=== PATIENT | female | born 1995 | race Caucasian/White ===

== ENCOUNTER 2019-04-06 04:18 | Inpatient (IN) ==
[2019-04-06] MEDS ORDERED: STADOL IV PRN (04:22)
[2019-04-06] MEDS ORDERED: PEPCID PO PRN (04:22)
[2019-04-06] MEDS ORDERED: PEPCID IV PRN (04:22)
[2019-04-06] MEDS ORDERED: TYLENOL PO PRN (04:22)
[2019-04-06] MEDS ORDERED: PEPCID PO ONE ×2 (04:22→20:17)
[2019-04-06] MEDS ORDERED: REGLAN PO ONE (04:22)
[2019-04-06] MEDS ORDERED: KEFZOL 1 GM/D5W 1 GM/50 ML IVPB IV PRN (04:22)
[2019-04-06] MEDS ORDERED: SODIUM CHLORIDE 0.9% INJ SCH (04:30)
[2019-04-06] MEDS ORDERED: PITOCIN 30 UNITS/NS 30 UNIT/500 ML IV.SOLN IV SCH ×2 (04:30→12:00)
[2019-04-06] MEDS ORDERED: AMPICILLIN 2 GM/NS 2 GM/100 ML IVPB IV ONE (04:31)
[2019-04-06] MEDS: LR 1,000 ML IV SCH ×2 (04:40→08:47)
[2019-04-06 05:04] LABS: BASO# 0.02 X1000 (0.0-0.2); BASO% 0.2 % (0.0-0.8); EOS# 0.18 X1000 (0.0-0.7); EOS% 1.5 % (0.0-10.0); HEMATOCRIT 32.3 % (37.0-47.0); HEMOGLOBIN 10.9 g/dL (12.0-16.0); IMM GRAN# 0.11 X1000 (0.0-0.04); IMM GRAN% 0.9 % (0.0-0.5); LYMPH# 2.45 X1000 (1.2-3.4); LYMPH% 19.8 % (20.5-51.1); MCH 28.5 PG (27-31); MCHC 33.7 g/dL (33-37); MCV 84.6 FL (81-99); MONO# 1.13 X1000 (0.11-0.59); MONO% 9.1 % (1.7-9.3); MPV 11.8 FL (7.4-10.4); NEUT# 8.47 X1000 (1.4-6.5); NEUT% 68.5 % (42.2-75.2); PLT 195 X1000 (130-400); RBC 3.82 XMIL (4.2-5.4); RDW 12.5 % (11.5-14.5); WBC 12.36 X1000 (4.8-10.8)
[2019-04-06] MEDS: ZOFRAN IV PRN ×2 (05:23→08:31)
[2019-04-06] MEDS ORDERED: NAROPIN 0.2% INJ ONE (05:34)
[2019-04-06] MEDS ORDERED: MINERAL OIL MISC ONE (05:35)
[2019-04-06] MEDS ORDERED: XYLOCAINE-MPF 1% INJ ONE (05:35)
[2019-04-06] MEDS ORDERED: FENTANYL-BUPIV-NS 2 MCG-0.1% 200 ML EPIDURAL SCH (05:45)
[2019-04-06 06:10] LABS: URINE SOURCE VOIDED
[2019-04-06 06:30] LABS: BILIRUBIN URINE NEGATIVE (NEGATIVE); BLOOD URINE 4+ (NEGATIVE); CLARITY SL. CLOUDY (CLEAR); GLUCOSE URINE NEGATIVE (NEGATIVE); KETONE URINE TRACE mg/dL (NEGATIVE); LEUKOCYTES URINE 1+ (NEGATIVE); NITRITE URINE NEGATIVE (NEGATIVE); PROTEIN URINE 1+(30 mg/dL) mg/dL (NEGATIVE); SP GRAVITY URINE 1.015; UROBILINOGEN URINE NORMAL
[2019-04-06 06:31] LABS: UR AMPHETAMINES QUAL NONE DETECTED (NONE DETECT); UR BARBITUATES QUAL NONE DETECTED (NONE DETECT); UR BENZODIAZEPIN QUAL NONE DETECTED (NONE DETECT); UR CANNABINOIDS QUAL NONE DETECTED (NONE DETECT); UR COCAINE QUAL NONE DETECTED (NONE DETECT); UR METHADONE QUAL NONE DETECTED (NONE DETECT); UR METHAMPHETAMINE QUAL NONE DETECTED (NONE DETECT); UR OPIATES QUAL NONE DETECTED (NONE DETECT); UR OXYCODONE QUAL NONE DETECTED (NONE DETECT); UR PCP QUAL NONE DETECTED (NONE DETECT); UR PROPOXYPHENE QUAL NONE DETECTED (NONE DETECT); UR TCA QUAL NONE DETECTED (NONE DETECT)
[2019-04-06 06:34] LABS: COLOR PINK
--- NOTE | 2019-04-06 07:46 | HISTORY AND PHYSICAL ---
HISTORY OF PRESENT ILLNESS: Patient is a 23-year-old, white female, G 3, P 1, A 1 at 38 weeks gestation, who presented at 4 a.m. with spontaneous rupture of membranes, having some contractions. The patient was noted to be 4 cm dilated upon presentation. care significant for rubella nonimmune, also epilepsy, and was diagnosed as a fragile X carrier. Group B strep culture was negative. PAST MEDICAL HISTORY: Significant for epilepsy. She is on medication. She also has migraines on occasion and history of HSV 1. PAST SURGICAL HISTORY: Significant for cholecystectomy, D and C, laparoscopy for ovarian cyst. PAST OB HISTORY: G 3, P 1, A 1. Spontaneous vaginal delivery x1. Spontaneous AB x1. PUBLICITY PERSON HISTORY: Menarche at age 13. REVIEW OF SYSTEMS: Significant for asthma and migraines. Asthma presently requires no medicine. FAMILY HISTORY: Unremarkable. SOCIAL HISTORY: Tobacco use: None. Alcohol use: None. MEDICATIONS: Lamictal, Valtrex, folic acid and vitamins. ALLERGIES: To morphine. PHYSICAL EXAMINATION: VITAL SIGNS: Height 5 feet 9 inches, weight 192 pounds. Temperature 96.9 degrees, blood pressure 110/56, pulse is 68, respirations 20. heart rate in the 130s with [id number] variability. HEENT: Pupils equal, round, reactive to light and accommodation. Extraocular movements intact. Oropharynx clear. NECK: Supple. No thyromegaly. LUNGS: Clear to auscultation. HEART: Regular rate and rhythm. ABDOMEN: Gravid, nontender. PELVIC: The external genitalia was inspected and no lesions were identified. The cervix was 5 cm dilated, 90% effaced. EXTREMITIES: Minimal lower extremity edema and 1+ DTRs bilaterally. ASSESSMENT/PLAN: A 23-year-old white female, G 3, P 1, A 1 at 38 weeks gestation with spontaneous rupture of membranes. Patient had epidural placed and will add Pitocin to augment her labor. Anticipate a vaginal delivery. cc: Anil Mackenzie III, MD
[2019-04-06] MEDS ORDERED: AMPICILLIN 1 GM/NS 1 GM/50 ML IVPB IV SCH (08:32)
[2019-04-06] MEDS: LAMICTAL PO SCH ×2 (08:39→20:25)
[2019-04-06] MEDS ORDERED: HYDROXYZINE IM PRN (11:54)
[2019-04-06] MEDS ORDERED: BENADRYL PO PRN (11:54)
[2019-04-06] MEDS ORDERED: BOOSTRIX VACCINE IM ONE (11:54)
[2019-04-06] MEDS ORDERED: XYLOCAINE-MPF 1% INJ PRN (11:54)
[2019-04-06] MEDS ORDERED: PITOCIN IM PRN (11:54)
[2019-04-06] MEDS ORDERED: MINERAL OIL PO PRN (11:54)
[2019-04-06] MEDS ORDERED: ATARAX PO PRN (11:54)
[2019-04-06] MEDS ORDERED: CYTOTEC PO PRN (11:54)
[2019-04-06] MEDS ORDERED: M-M-R II VACCINE SUBQ ONE (11:54)
[2019-04-06] MEDS ORDERED: BENADRYL IV PRN (11:54)
[2019-04-06] MEDS ORDERED: AMBIEN PO PRN (11:54)
[2019-04-06] MEDS ORDERED: NORCO-10 PO PRN (11:54)
[2019-04-06] MEDS ORDERED: PITOCIN 20 UNITS/NS 20 UNITS/1,000 ML IV.SOLN IV SCH (12:00)
[2019-04-06] MEDS: PERI MEDS (DERMOPLAST/NUPERCAINAL/TUCKS) MISC PRN (12:26)
--- NOTE | 2019-04-06 12:45 | OPERATIVE NOTE ---
PROCEDURE DATE: 04/06/2019 VAGINAL DELIVERY SUMMARY: The patient progressed to complete and pushing, and had a spontaneous vaginal delivery of a male infant, 7 pounds 14 ounces, with Apgars of 9 and 10 at 11:28 on 04/06/2019 over right vaginal sidewall laceration and periurethral laceration. Placenta was delivered intact with 3-vessel cord. Cord blood sample was obtained at this time. Evidence of a clot covering about 20% of the placenta, suggesting a small abruption, was noted. Right vaginal sidewall laceration and periurethral laceration were repaired with 3-0 Vicryl. ESTIMATED BLOOD LOSS: 150 mL. ANESTHESIA: Epidural and 1 mL of 1% lidocaine. COUNTS: All counts were correct x2. cc: Anil Mackenzie III, MD
[2019-04-06] MEDS: MOTRIN PO PRN ×2 (14:12→23:58)
[2019-04-06] MEDS: PERICOLACE PO SCH (20:26)
[2019-04-06] MEDS: NORCO-5 PO PRN (23:58)
[2019-04-07 06:34] LABS: BASO# 0.02 X1000 (0.0-0.2); BASO% 0.1 % (0.0-0.8); EOS# 0.15 X1000 (0.0-0.7); EOS% 1.1 % (0.0-10.0); HEMATOCRIT 29.7 % (37.0-47.0); HEMOGLOBIN 9.7 g/dL (12.0-16.0); IMM GRAN# 0.05 X1000 (0.0-0.04); IMM GRAN% 0.4 % (0.0-0.5); LYMPH# 2.66 X1000 (1.2-3.4); LYMPH% 19.5 % (20.5-51.1); MCH 28.1 PG (27-31); MCHC 32.7 g/dL (33-37); MCV 86.1 FL (81-99); MONO# 1.08 X1000 (0.11-0.59); MONO% 7.9 % (1.7-9.3); MPV 11.7 FL (7.4-10.4); PLT 190 X1000 (130-400); RBC 3.45 XMIL (4.2-5.4); RDW 12.7 % (11.5-14.5); WBC 13.66 X1000 (4.8-10.8)
[2019-04-07] MEDS: NORCO-5 PO PRN ×2 (07:26→18:12)
[2019-04-07] MEDS: MOTRIN PO PRN ×2 (07:27→18:11)
--- NOTE | 2019-04-07 08:17 | OB/GYN PROGRESS NOTE ---
Progress Note OB - . Patient Problems: Current Active Problems Problem Status Onset (spontaneous vaginal delivery) Acute Epilepsy affecting in third trimester Acute OB Progress Note: Vital Signs - 24 hr 04/06/19 11:50 04/06/19 12:00 04/06/19 12:10 Temperature 98 F Pulse Rate 80 76 82 Respiratory Rate 20 20 20 Blood Pressure Blood Pressure [Left Arm] 126/66 125/66 117/55 O2 Sat by Pulse Oximetry 100 100 100 04/06/19 12:20 04/06/19 12:30 04/06/19 12:40 Temperature Pulse Rate 68 65 75 Respiratory Rate 20 20 20 Blood Pressure Blood Pressure [Left Arm] 118/59 119/72 139/75 O2 Sat by Pulse Oximetry 100 100 100 04/06/19 12:50 04/06/19 13:50 04/06/19 15:19 Temperature 98.8 F 98.6 F Pulse Rate 68 94 H 82 Respiratory Rate 20 20 20 Blood Pressure 125/58 131/70 118/67 Blood Pressure [Left Arm] 125/58 O2 Sat by Pulse Oximetry 100 99 99 04/06/19 16:20 04/06/19 17:33 04/06/19 21:05 Temperature 98.9 F 97.1 F L Pulse Rate 83 75 75 Respiratory Rate 20 20 18 Blood Pressure 123/56 128/75 129/58 Blood Pressure [Left Arm] O2 Sat by Pulse Oximetry 98 98 04/07/19 00:00 04/07/19 06:28 Temperature 97.0 F L 96.4 F L Pulse Rate 69 76 Respiratory Rate 18 16 Blood Pressure 120/56 138/74 Blood Pressure [Left Arm] O2 Sat by Pulse Oximetry 100 Laboratory Results - last 24 hr 04/07/19 06:13 WBC 13.66 H RBC 3.45 L Hgb 9.7 L Hct 29.7 L MCV 86.1 MCH 28.1 MCHC 32.7 L RDW Std Deviation 12.7 Plt Count 190 MPV 11.7 H Immature Gran % (Auto) 0.4 Neut % (Auto) 71.0 Lymph % (Auto) 19.5 L [place] % (Auto) 7.9 Eos % (Auto) 1.1 Baso % (Auto) 0.1 Immature Gran # (Auto) 0.05 H Neut # (Auto) 9.70 H Lymph # (Auto) 2.66 [place] # (Auto) 1.08 H Eos # (Auto) 0.15 Baso # (Auto) 0.02 S: Patient without complaints. Denied fever, chills, N/V, SOB, or chest pain. Pain minimal and controlled. Voiding without difficulty. Lochia decreasing; scant. Breast-feeding without difficulty. Desires IUD for contraception. O: Gen: NAD CV: RRR Pulm: CTAB; no rhonchi, wheezing, or rales Abd: soft, non-tender to palpation; non-distended; fundus firm and at umbilicus Ext: no LE TTP A&P: 23yo s/p at 39 weeks: 1. PPD#1- No concerns -Cont. routine care 2. Anemia- -Iron and vitamins 3. Hx Epilepsy -Cont Lamictal 200mg BID 4. Asthma, mild intermittent -Albuterol PRN 5. Rubella NON-immune -MMR booster 6. HSV1 -No lesions/ prodromal symptoms
[2019-04-07] MEDS: LAMICTAL PO SCH (08:58)
[2019-04-07] MEDS ORDERED: TYLENOL PO PRN (13:55)
[2019-04-08] MEDS: PERICOLACE PO SCH (07:40)
[2019-04-08] MEDS: LAMICTAL PO SCH ×3 (07:40→12:29)
[2019-04-08 07:51] VITALS: BP 120/58
[2019-04-08] MEDS: MOTRIN PO PRN (07:53)
[2019-04-08] MEDS: NORCO-5 PO PRN ×2 (07:53→12:22)
[2019-04-08] MEDS ORDERED: FERROUS SULFATE PO SCH (09:00)
--- NOTE | 2019-04-08 09:37 | DISCHARGE SUMMARY ---
ADMISSION DATE: 04/06/2019 DISCHARGE DATE: 04/08/2019 ADMISSION DIAGNOSIS: A 23-year-old white female, 3, para 1, 1 at 38 weeks gestation with spontaneous rupture of membranes and early labor. FINAL DIAGNOSIS: A 23-year-old white female, 3, para 1, 1 at 38 weeks gestation with spontaneous rupture of membranes and early labor with spontaneous vaginal delivery of a male infant, 7 pounds 14 ounces, Apgars of 9 and 10 at 1128 hours on 04/06/2019. PROCEDURE: Spontaneous vaginal delivery. BRIEF HISTORY: The patient is a 23-year-old white female, G 3, P 1, A 1 at 38 weeks gestation, presented at 4 a.m. with spontaneous rupture of membranes, having some contractions. She was noted to be 4 cm dilated. care significant for rubella nonimmune status. Also, a history of epilepsy. No seizures in the last 2 years and had been diagnosed as a fragile X carrier. Group B strep culture was negative. PAST MEDICAL HISTORY: Significant for epilepsy as noted above, not on medication. Also has migraines on occasion and history of HSV 1. PAST SURGICAL HISTORY: Significant for cholecystectomy, D and C and laparoscopy for ovarian cyst. PAST OB HISTORY: G 3, P 1, A1. Spontaneous vaginal delivery x1. Spontaneous AB x1. 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 REVIEW OF SYSTEMS: Significant for asthma, as well as migraines; asthma presently requires no medicine. FAMILY HISTORY: Unremarkable. SOCIAL HISTORY: Tobacco use: None. Alcohol use: None. MEDICATIONS: Lamictal, Valtrex, folic acid and vitamins. ALLERGIES: Morphine. PHYSICAL EXAMINATION: Vital Signs: Height 5 feet 9 inches, weight 192 pounds, temperature 96.9 degrees, blood pressure 110/56, pulse of 68, respirations 20. heart rate in the 130s with good [id number] variability. HEENT: Pupils equal, round, reactive to light and accommodation. Extraocular movements intact. Oropharynx clear. Neck: Supple. No thyromegaly. Lungs: Clear to auscultation. Heart: Regular rate and rhythm. Abdomen: Gravid, nontender. Pelvic exam: External genitalia was inspected and no lesions were identified. The cervix was 5 cm dilated, 90% effaced, -2 station. Extremities: Minimal lower extremity edema, and 1+ DTRs bilaterally. ASSESSMENT AND PLAN: A 23-year-old white female, G 3, P 1, A 1 at 38 weeks gestation with spontaneous rupture of membranes in early labor. Patient had epidural placed already and will have Pitocin added to augment her labor. HOSPITAL COURSE: Patient progressed to complete and pushing and had spontaneous vaginal delivery of a male , 7 pounds 14 ounces with Apgars of 9 and 10 at 1128 hours on 04/06/2019. She had a right vaginal sidewall laceration and periurethral laceration, both were repaired without difficulty. The patient then had a normal course. She did have a hemoglobin that was low at 9.7 and hematocrit was also low at 29.7, and she was placed on iron. On day #2, she was ambulatory and had stable vital signs with mild lochia and was presently . It was felt that she could be discharged home at this time. DISCHARGE INSTRUCTIONS: Patient instructed on pelvic rest for 6 weeks, lifting precautions for 6 weeks. Patient to call for any temperature greater than 101, heavy vaginal bleeding, or severe abdominal pain. The patient is to continue with her previous medications of Valtrex, as well as her vitamin, and she was given prescriptions for [place] 5, Colace, Motrin and iron sulfate. cc: Anil Mackenzie III, MD
[2019-04-08] MEDS: PERI MEDS (DERMOPLAST/NUPERCAINAL/TUCKS) MISC PRN (12:28)
== END 2019-04-08 13:25 | disposition home or self-care (01) | DRG 805 ==
LOC: P.OPLD 04:18 → P.LD 04:19
PROVIDERS: ADMIT Obstetrics & Gynecology Obstetrics; ATTEND Obstetrics & Gynecology Obstetrics
CPT/HCPCS: 80104; 80301; 80305; 81003; 85025; 86592; 90707; A9270; G0431; G0434; G0477; J0290; J0595; J2405; J2590; J7120